=== PATIENT | female | born 1990 | race Caucasian/White ===

== ENCOUNTER 2018-03-05 19:26 | Emergency (ER) | payer MEDICAID ==
[~2018-03-05] VITALS: Ht 162.6 cm; Wt 136.1 kg
[2018-03-05 19:42] VITALS: BP_SYST 142
[2018-03-05] MEDS ORDERED: FIORCET PO ONE (21:15)
[2018-03-05] MEDS ORDERED: ONDANSETRON 4 MG ODT TAB PO ONE (21:30)
[2018-03-05 22:18] VITALS: BP_SYST 134
== END 2018-03-05 22:18 | disposition home or self-care (01) ==
LOC: SED 19:26
DX: R20.2 Paresthesia of skin (principal); R51 Headache; I10 Essential (primary) hypertension; E66.9 Obesity, unspecified; Z68.43 Body mass index [BMI] 50.0-59.9, adult; Z90.49 Acquired absence of other specified parts of digestive tract
CPT/HCPCS: 70450; 81025; 99284; Q0162